=== PATIENT | male | born 1935 | race Caucasian/White ===

== ENCOUNTER → 2017-08-29 | Outpatient (CLI) | payer MEDICARE, OTHER ==
[2015-10-19 13:21] VITALS: BMI 33.5
[~2017-08-29] MED LIST: ACET-2031 PO; ACET500T68 PO; ALL100 PO; ALLO-118 PO; BEN20 PO; BENA10TA4 PO; BENA20TA3 PO; BENA20TA62 PO; CEP500 PO; CEPH500T7 PO; CLOT15CR62 TP; DIGO125T25 PO; ENOX40DI8 SQ; FISH OIL1 CAP PO; FUR20 PO; FURO20TA19 PO; HYDR-4309 PO; LABE100T28 PO; LOR7.5/325 PO; LOVAZA1PT PO; METO2.5T15 PO; METO5TAB79 PO; OMEGA; OXYC-865 PO; OXYGENHOME INH; PER PO; PNEU0.5D3 IM; SPIR25TA78 PO; TAM4 PO; TAMS0.4C25 PO; TAMS0.4C76 PO; WAR5 PO; WARF-1 PO; WARF10TA29 PO; WARF5TAB23 PO; ZOLP-350 PO; ZOLP-358 PO; [UNRECOGNIZED DRUG - CODE] PO; [UNRECOGNIZED DRUG - CODE] PO
== END ==
LOC: LAB 07:51
PROVIDERS: ATTEND Internal Medicine
DX: R73.01 Impaired fasting glucose (principal); E78.2 Mixed hyperlipidemia; I10 Essential (primary) hypertension; I50.22 Chronic systolic (congestive) heart failure
CPT/HCPCS: 36415; 82040; 82247; 82310; 82374; 82435; 82465; 82565; 82947; 83036; 83718; 83880; 84075; 84132; 84155; 84295; 84450; 84460; 84478; 84520

== ENCOUNTER 2017-11-03 11:37 | Emergency (ER) | payer MEDICARE, OTHER ==
[2015-10-19 13:21] VITALS: Wt 107.7 kg
[~2017-11-03 11:37] MED LIST changes: -BENA10TA4 PO; +BENA10TA55 PO; +HYDR15OI21 TP; +LABE100T2 PO; -SPIR25TA78 PO; +SPIR25TA80 PO; +TRIA15CR40 TP
--- NOTE | 2017-11-03 11:52 | ER Report ---
History and Physical Time Seen By MD: 11:52 Hx. of Stated Complaint: Patient with "funny breathing" this am and nausea. Didn't feel well. Vomitted all over self in parking lot on arrival to ER HPI/ROS 82-year-old male with multiple chronic medical problems to include atrial fibrillation and a possible remote history of PE. He presents to the emergency department with chest pain, nausea vomiting, and diaphoresis. He he says that he only has chest pain when taking a deep breath, and describes the pain location as just above his sternum and distal to his thyroid. He states it feels almost if he has a "cold," but was worried that it was cardiac in nature due to the location of the pain. He has no dysphasia. No shortness of breath. He was able to take his medications as scheduled this morning. No fever chills. He states that he often has diaphoresis. No trauma. The pain is localized to the area described and does not radiate. Remainder of the 14 system rev: Yes Allergies: Coded Allergies: Penicillins (Verified Allergy, Severe, HIVES, 11/03/17) Sulfa (Sulfonamide Antibiotics) (Verified Allergy, Intermediate, rash, 11/03) erythromycin base (Verified Allergy, Intermediate, 11/03/17) Home Meds Active Scripts Zolpidem Tartrate (ZOLPIDEM TARTRATE) 10 Mg Tablet, 0.5-1 TAB PO HS Y for SLEEP , #30 TAB 0 Refills Prov:LIGIA MOLINA MD 10/20/17 Labetalol Hcl (LABETALOL HCL) 100 Mg Tablet, 1 TAB PO BID, #180 TAB 3 Refills Prov:LIGIA MOLINA MD 10/07/17 Benazepril Hcl (LOTENSIN) 20 Mg Tablet, 1 TAB PO BID, #180 TAB 3 Refills Hold dose if systolic blood pressure (SBP) is less than 140. Prov:LIGIA MOLINA MD 08/05/17 Metolazone (METOLAZONE) 5 Mg Tablet, 1 TAB PO QDAY, #30 TAB 11 Refills Prov:LIGIA MOLINA MD 04/30/17 Allopurinol (ZYLOPRIM) 100 Mg Tablet, 1 TAB PO QDAY, #90 TAB 3 Refills Prov:LIGIA MOLINA MD 12/12/17 Reported Medications [place]-3 Fatty Acids/Fish Oil (OMEGA 3 1,000 MG SOFTGEL) 1 Each Capsule, 2 EACH PO QDAY, CAPSULE 11/03/17 Furosemide (FUROSEMIDE) 20 Mg Tablet, 1 TAB PO BID, TAB 11/03/17 Tamsulosin Hcl (FLOMAX) 0.4 Mg Cap.er.24h, 0.4 MG PO DAILY, CAP 06/18/16 Warfarin Sodium (WARFARIN SODIUM) 5 Mg Tablet, 5 MG PO QDAY, #45 TAB 11/02/15 Discontinued Scripts Triamcinolone Acetonide 0.1% Cr 15 Gm Tube (TRIAMCINOLONE ACETONIDE 0.1% CREAM) 15 Gm Cream..g., 1 BELLO TP BID for 30 Days, #1 TUBE 0 Refills Prov:ARACELI CACERES 10/30/17 Furosemide (LASIX) 20 Mg Tablet, 3 TAB PO DAILY, #90 TAB 3 Refills Take 2 tablets by mouth q am, and one tab at q pm. Hold dose if systolic blood pressure (SBP) is less than 120. Prov:LIGIA MOLINA MD 06/24/17 Reviewed Nurses Notes: Yes Old Medical Records Reviewed: Yes Hx Smoking: No Smoking Status: Never Smoker Exposure to Second Hand Smoke?: No Hx Substance Use Disorder: No Hx Alcohol Use: No Constitutional Vital Sign - Last 24 Hours 11/03/17 11/03/17 11/03/17 11/03/17 11:42 11:43 11:44 11:49 Pulse 138 Resp 34 B/P (MAP) 145/100 145/100 (115) 128/93 (105) Pulse Ox 85 O2 Delivery Room Air O2 Flow Rate 2.0 11/03/17 11/03/17 11/03/17 11/03/17 11:52 12:00 12:07 12:11 Pulse 125 128 Resp 22 B/P (MAP) 153/103 (120) 131/83 (99) Pulse Ox 91 89 11/03/17 11/03/17 11/03/17 11/03/17 12:14 12:19 12:24 12:29 Pulse 99 90 B/P (MAP) 124/105 (111) Pulse Ox 91 91 91 11/03/17 11/03/17 11/03/17 11/03/17 12:30 12:34 12:39 12:44 Pulse 99 82 96 B/P (MAP) 120/78 (92) Pulse Ox 92 93 92 11/03/17 11/03/17 11/03/17 11/03/17 12:49 12:54 13:00 13:09 Pulse 92 106 109 B/P (MAP) 118/88 (98) Pulse Ox 92 91 94 11/03/17 11/03/17 11/03/17 11/03/17 13:24 13:30 13:39 13:55 Pulse 96 102 B/P (MAP) 129/72 (91) 116/74 (88) Pulse Ox 93 92 11/03/17 11/03/17 11/03/17 11/03/17 14:00 14:05 14:20 14:30 Pulse 85 100 B/P (MAP) 108/66 (80) 112/76 (88) Pulse Ox 94 93 11/03/17 11/03/17 11/03/17 11/03/17 14:35 14:50 15:00 15:05 Pulse 82 118 94 B/P (MAP) 112/77 (89) Pulse Ox 95 91 93 11/03/17 11/03/17 11/03/17 11/03/17 15:10 15:15 15:20 15:25 Pulse 91 84 95 90 Pulse Ox 93 94 97 96 11/03/17 11/03/17 11/03/17 11/03/17 15:30 15:40 15:45 15:50 Pulse 87 97 88 88 B/P (MAP) 105/61 (76) Pulse Ox 97 94 95 95 Intake and Output 11/03/17 11/03/17 11/04/17 14:59 22:59 06:59 Intake Total 1000 ml Balance 1000 ml Physical Exam General Appearance: The patient is alert, has no immediate need for airway protection and no current signs of toxicity. Eyes: Pupils equal and round no injection. Respiratory: Chest is non tender, lungs are clear to auscultation. Cardiac: irregular rhytm and tachycardic Gastrointestinal: Abdomen is soft and non tender, no masses, bowel sounds normal. Neck: Neck is supple and non tender. Extremities have full range of motion and are non tender. Skin: Chronic venous stasis skin changes to bilateral lower extremities DIFFERENTIAL DIAGNOSIS: After history and physical exam differential diagnosis was considered for chest pain including but not limited to myocardial ischemia, pericarditis pulmonary embolus, chest wall pain, pleural inflammation and pulmonary infectious causes. Medical Decision Making Data Points Result Diagram: 11/03/17 1148 11/03/17 1148 Laboratory Hematology Test 11/03/17 11:48 11/03/17 14:49 Red Blood Count 5.25 M/uL (4.00-5.60) Mean Corpuscular Volume 88.2 fL (80.0-96.0) Mean Corpuscular Hemoglobin 29.2 pg (26.0-33.0) Mean Corpuscular Hemoglobin Concent 33.1 g/dL (32.0-36.0) Red Cell Distribution Width 15.9 % (11.5-14.5) Mean Platelet Volume 7.9 fL (7.2-11.1) Neutrophils (%) (Auto) 80.3 % (39.4-72.5) Lymphocytes (%) (Auto) 10.7 % (17.6-49.6) Monocytes (%) (Auto) 8.0 % (4.1-12.4) Eosinophils (%) (Auto) 0.6 % (0.4-6.7) Basophils (%) (Auto) 0.4 % (0.3-1.4) Nucleated RBC Relative Count (auto) 0.1 /100WBC Neutrophils # (Auto) 10.5 K/uL (2.0-7.4) Lymphocytes # (Auto) 1.4 K/uL (1.3-3.6) Monocytes # (Auto) 1.0 K/uL (0.3-1.0) Eosinophils # (Auto) 0.1 K/uL (0.0-0.5) Basophils # (Auto) 0.1 K/uL (0.0-0.1) Nucleated RBC Absolute Count (auto) 0.01 K/uL Prothrombin Time 20.5 seconds (12.0-14.4) Prothromb Time International Ratio 1.73 Activated Partial Thromboplast Time 34 seconds (23-35) D-Dimer Quantitative (PE/DVT) 0.60 ug/ml (0-0.50) Sodium Level 140 mmol/L (137-145) Potassium Level 3.7 mmol/L (3.5-5.0) Chloride Level 100 mmol/L (98-107) Carbon Dioxide Level 28 mmol/L (22-30) Blood Urea Nitrogen 21 mg/dl (9-21) Creatinine 1.10 mg/dl (0.66-1.25) Glomerular Filtration Rate Calc > 60.0 Random Glucose 125 mg/dl (75-110) Calcium Level 9.1 mg/dl (8.4-10.2) Total Bilirubin 0.9 mg/dl (0.2-1.3) Aspartate Amino Transf (AST/SGOT) 21 U/L (0-35) Alanine Aminotransferase (ALT/SGPT) 22 U/L (0-56) Alkaline Phosphatase 86 U/L (0-126) Total Protein 7.7 g/dl (6.3-8.2) Albumin 4.5 g/dl (3.5-5.0) Lipase 90 U/L (23-300) Troponin I < 0.012 ng/ml Chemistry Test 11/03/17 11:48 11/03/17 14:49 White Blood Count 13.1 k/uL (4.5-11.0) Red Blood Count 5.25 M/uL (4.00-5.60) Hemoglobin 15.3 g/dL (14.0-18.0) Hematocrit 46.3 % (42.0-52.0) Mean Corpuscular Volume 88.2 fL (80.0-96.0) Mean Corpuscular Hemoglobin 29.2 pg (26.0-33.0) Mean Corpuscular Hemoglobin Concent 33.1 g/dL (32.0-36.0) Red Cell Distribution Width 15.9 % (11.5-14.5) Platelet Count 177 K/uL (150-450) Mean Platelet Volume 7.9 fL (7.2-11.1) Neutrophils (%) (Auto) 80.3 % (39.4-72.5) Lymphocytes (%) (Auto) 10.7 % (17.6-49.6) Monocytes (%) (Auto) 8.0 % (4.1-12.4) Eosinophils (%) (Auto) 0.6 % (0.4-6.7) Basophils (%) (Auto) 0.4 % (0.3-1.4) Nucleated RBC Relative Count (auto) 0.1 /100WBC Neutrophils # (Auto) 10.5 K/uL (2.0-7.4) Lymphocytes # (Auto) 1.4 K/uL (1.3-3.6) Monocytes # (Auto) 1.0 K/uL (0.3-1.0) Eosinophils # (Auto) 0.1 K/uL (0.0-0.5) Basophils # (Auto) 0.1 K/uL (0.0-0.1) Nucleated RBC Absolute Count (auto) 0.01 K/uL Prothrombin Time 20.5 seconds (12.0-14.4) Prothromb Time International Ratio 1.73 Activated Partial Thromboplast Time 34 seconds (23-35) D-Dimer Quantitative (PE/DVT) 0.60 ug/ml (0-0.50) Glomerular Filtration Rate Calc > 60.0 Calcium Level 9.1 mg/dl (8.4-10.2) Total Bilirubin 0.9 mg/dl (0.2-1.3) Aspartate Amino Transf (AST/SGOT) 21 U/L (0-35) Alanine Aminotransferase (ALT/SGPT) 22 U/L (0-56) Alkaline Phosphatase 86 U/L (0-126) Total Protein 7.7 g/dl (6.3-8.2) Albumin 4.5 g/dl (3.5-5.0) Lipase 90 U/L (23-300) Troponin I < 0.012 ng/ml Coagulation Test 11/03/17 11:48 Prothrombin Time 20.5 seconds Prothromb Time International Ratio 1.73 Activated Partial Thromboplast Time 34 seconds D-Dimer Quantitative (PE/DVT) 0.60 ug/ml EKG/Imaging EKG Interpretation 12 lead EKG: Rhythm: afib with RVR [place]: left QRS: wide ST segments: Nonspecific T wave flattening ED Course/Re-evaluation ED Course This is an extremely pleasant 82-year-old male who presents to the emergency department with upper sternal chest pain with inspiration, nausea and vomiting, and diaphoresis. He is noted to be in A. fib with RVR. He was started on IV fluids and given IV diltiazem. Lab data is relatively unremarkable including a troponin. His EKG is at baseline. He has 2 normal troponins. No PE on a CTA of the chest, and no evidence of a pneumonia. He is now rate controlled and feeling improved after rate control and IV fluids. I do not think this is cardiac in nature nor do I think it is a PE. He states that he feels as if he just has a viral URI possibly. He has a follow-up appointment already scheduled tomorrow with his primary care physician. Decision to Disposition Date: Nov 03, 2017 Decision to Disposition Time: 16:12 Depart Departure Latest Vital Signs Vital Signs Date Time Temp Pulse Resp B/P (MAP) Pulse Ox O2 Delivery O2 Flow Rate FiO2 11/03/17 15:50 88 95 11/03/17 15:30 105/61 (76) 11/03/17 12:07 22 11/03/17 11:49 2.0 11/03/17 11:42 Room Air Impression: Primary Impression: Pleuritic chest pain Condition: Improved Disposition: HOME OR SELF-CARE Referrals: LIGIA MOLINA MD (PCP) Patient Instructions: Pleurisy (ED) RADHA LO MD Nov 03, 2017 11:52
[2017-11-03] MEDS ORDERED: OMEG-96 PO (11:56)
[2017-11-03] MEDS ORDERED: FURO-45 PO (11:56)
[2017-11-03] MEDS ORDERED: ONDANSETRON 4 MG/2 ML VIAL ONE (12:02)
[2017-11-03] MEDS ORDERED: DILTIAZEM 5 MG/ML 5ML IVPUSH IVP ONE (12:10)
[2017-11-03] MEDS ORDERED: NS(*) 0.9% 1000 ML BAG 1,000 ML IV ONE (12:10)
[2017-11-03 12:15] LABS: PLATELET COUNT, AUTOMATED 177 K/uL (150-450)
--- NOTE | 2017-11-03 13:04 | EKG ---
FACILITY: [facility] PATIENT NAME: FABIAN RINALDI : [id number] MR: [id number] V: [id number] EXAM DATE: ORDERING PHYSICIAN: RADHA LO TECHNOLOGIST: SCOTT Test Reason : Blood Pressure : / mmHG Vent. Rate : 134 BPM Atrial Rate : 127 BPM P-R Int : 000 ms QRS Dur : 116 ms QT Int : 322 ms P-R-T Axes : 000 -39 083 degrees QTc Int : 480 ms Atrial fibrillation with rapid ventricular response with premature ventricular or aberrantly conducte d complexes Left axis deviation Abnormal ECG When compared with ECG of 18-JUN-2016 16:24, No significant change was found Confirmed by MICHELE HORN ([id number]) on 11/04/2017 6:25:55 AM Referred By: TERESITA Confirmed By:MICHELE HORN
[2017-11-03 13:12] LABS: INR 1.73
--- NOTE | 2017-11-03 13:15 | RADIOLOGY IMAGING REPORT ---
[place] [facility] [place] Naomi Swain : 1935 MR: [id number] V: [id number] EXAM DATE: ORDERING PHYSICIAN: RADHA LO TECHNOLOGIST: [place] [facility] [place]: Naomi Swain : 1935 Visit/Account:[id number] Date of Sevice: 11/03/2017 CHEST SINGLE AP Indication: Shortness breath, chest pain and diaphoresis.. Comparison: 06/18/2016. Findings: Cardiac silhouette remains enlarged but unchanged. Mediastinal silhouette and pulmonary vessels withi n normal limits for the technique and rotation. There is no focal infiltrate or lobar consolidation. No pneumothorax or pleural effusion. No discrete nodule. Chronic interstitial changes. Mild scarring is again seen in the lateral right lo wer lobe. Upper abdomen is unremarkable. No acute bony abnormality. IMPRESSION: 1. Stable enlarged cardiac silhouette without discrete edema or focal infiltrate. Report Dictated By: Sergei Grande at 11/03/2017 1:08 PM Report E-Signed By: Sergei Grande at 11/03/2017 1:11 PM WSN:[id number]
[2017-11-03] MEDS ORDERED: NS 0.9% 25 ML BAG 50 ML ONE (13:47)
[2017-11-03] MEDS ORDERED: IOPAMIDOL 76% 100 ML INFUS BTL 100 ML ONE (13:47)
--- NOTE | 2017-11-03 14:26 | RADIOLOGY IMAGING REPORT ---
FACILITY: [facility] - [place] PATIENT NAME: Naomi Swain : 1935 MR: [id number] V: [id number] EXAM DATE: ORDERING PHYSICIAN: RADHA LO TECHNOLOGIST: Location: [facility] - [place] Patient: Naomi Swain : 1935 Visit/Account:[id number] Date of Sevice: 11/03/2017 CT angiogram chest with contrast Indication: Shortness breath and diaphoresis. History of pulmonary embolism. Comparison: None available. Technique: Axial CT images are obtained through the chest after administration of 75 mL Isovue 370 IV contrast. Reformatted coronal and sagittal images were reviewed as well as coronal MIP images. One of the following dose optimization techniques was utilized in the performance of this exam: auto mated exposure control; adjustment of the mA and/or kV according to the patient's size; or use of an iterative reconstruction technique. Specific details can be referenced in the facility's radiology C T exam operational policy. FINDINGS: No evidence of filling defect within the pulmonary vasculature to suggest pulmonary embolus. The heart is diffusely enlarged without pericardial effusion. The right ventricle measures 5.5 cm and the left ventricle measures 4.2 cm. The aorta does show mild atherosclerotic calcific changes withou t aneurysm. Aorta is not well opacified to assess for dissection. The mediastinum and hilar regions s how no enlarged lymph nodes or abnormal density. Lungs show mild dependent atelectasis and scarring. No focal consolidation, pleural effusion or pneum othorax. No discrete nodule. No focal interstitial opacities. Airways are clear. The bony structures show no acute fractures or aggressive bony lesions. Mild compression T11 vertebra l body appears to be stable compared the lateral chest x-ray on 09/22/2015. There are couple scattered bone islands in the thoracic spine. Degenerative changes seen in thoracic spine. Chest wall shows no enlarged axillary lymph nodes or masses. The anterior aspect of the liver does show 2 cm cyst. Upper abdomen is otherwise unremarkable. IMPRESSION: 1. No evidence of pulmonary embolus. 2. Cardiomegaly. No indication of edema or infiltrate. 3. Other chronic findings as above. Report Dictated By: Sergei Grande at 11/03/2017 2:08 PM Report E-Signed By: Sergei Grande at 11/03/2017 2:22 PM WSN:[id number]
[2017-11-03] MEDS ORDERED: GI COCKTAIL 60 ML BTL PO PRN (16:15)
[2017-11-03 16:25] VITALS: BP 101/73
[2017-11-03] MEDS ORDERED: DEXAMETHASONE 4 MG TAB PO ONE (16:25)
[2017-11-03] MEDS ORDERED: MAG HYD/AL HYD/SIMETH 30ML UDC PO ONE (16:30)
[2017-11-03] MEDS ORDERED: LIDOCAINE 2% VISC SLN 15ML UDC PO ONE (16:30)
[2017-11-04] MEDS ORDERED: FURO-45 PO (14:20)
[2017-11-04] MEDS ORDERED: POTA-23 PO (14:25)
[2017-11-04] MEDS ORDERED: FURO-47 PO (14:25)
== END 2017-11-03 16:25 | disposition home or self-care (01) ==
LOC: ER 11:37
DX: R07.89 Other chest pain (principal)
CPT/HCPCS: 36415; 71045; 71275; 83690; 84484; 85025; 85379; 85610; 85730; 93005; 96361; 96374; 99284; A9270; J2405; J3490; J7030; J8540; Q9967; 82040; 82247; 82310; 82374; 82435; 82565; 82947; 84075; 84132; 84155; 84295; 84450; 84460; 84520

== ENCOUNTER → 2017-11-13 | Outpatient (CLI) | payer MEDICARE, OTHER ==
[2015-10-19 13:21] VITALS: BMI 33.5
[~2017-11-13] MED LIST changes: +FURO-45 PO; +FURO-47 PO; +OMEG-96 PO; +POTA-23 PO
== END ==
LOC: LAB 13:41
PROVIDERS: ATTEND Internal Medicine
DX: I10 Essential (primary) hypertension (principal); R60.0 Localized edema
CPT/HCPCS: 36415; 82310; 82374; 82435; 82565; 82947; 84132; 84295; 84520

== ENCOUNTER → 2017-12-17 | Outpatient (CLI) | payer MEDICARE, OTHER ==
[2015-10-19 13:21] VITALS: BMI 33.5
--- NOTE | 2017-12-17 16:07 | RADIOLOGY IMAGING REPORT ---
FACILITY: [facility] - [place] PATIENT NAME: Naomi Swain : 1935 MR: [id number] V: [id number] EXAM DATE: ORDERING PHYSICIAN: PATRICE VICTOR TECHNOLOGIST: Location: [facility] Patient: Naomi Swain : 1935 Visit/Account:[id number] Date of Sevice: 12/17/2017 HIP LEFT HISTORY: Left hip pain Additional history: None COMPARISON: Comparison hip radiographs 07/02/2015 FINDINGS: Remote right hip fracture orthopedically repair with intramedullary nail and interlocking pin in plac e unchanged from 2016. Apparent mild foreshortening the left femoral neck is unchanged in appearance from the 2016 exam and I do not see evidence of an acute left hip fracture. Pelvic girdle is intact. No appreciable osteoarthritic change in the hip joints. Again seen is a 4 cm diameter spiculated calcified mass projecting over the urinary bladder which toni ost certainly represents a large bladder stone. IMPRESSION: No definite evidence of acute pathology. Specifically I do not see evidence of a left hip fracture. I would caution that radiographs are insensitive for nondisplaced hip fractures at this is a continu ed clinical concern noncontrasted MRI should be considered which is the most sensitive modality for d eveloping fractures. 4 cm spiculated bladder mass. Recommend urology consultation Report Dictated By: Shahid Hill MD at 12/17/2017 3:55 PM Report E-Signed By: Shahid Hill MD at 12/17/2017 4:03 PM WSN:[id number]
== END ==
LOC: RAD 14:54
PROVIDERS: ATTEND Nurse Practitioner Primary Care
DX: N32.9 Bladder disorder, unspecified (principal); Z96.7 Presence of other bone and tendon implants

== ENCOUNTER → 2017-12-22 | Outpatient (CLI) | payer MEDICARE, OTHER ==
[2015-10-19 13:21] VITALS: BMI 33.5
--- NOTE | 2017-12-22 15:18 | RADIOLOGY IMAGING REPORT ---
FACILITY: [facility] PATIENT NAME: Naomi Swain : 1935 MR: [id number] V: [id number] EXAM DATE: ORDERING PHYSICIAN: PATRICE VICTOR TECHNOLOGIST: Location: [facility] Patient: Naomi wSain : 1935 Visit/Account:[id number] Date of Sevice: 12/22/2017 HIP LEFT W/O CONTRAST HISTORY: L hip pain COMPARISON: X-ray 12/17/2017 TECHNIQUE: Multiplanar/multisequence was obtained through the left hip without contrast. CONTRAST: None FINDINGS: Left hip: Joint space: Moderate-severe joint space narrowing superiorly-laterally with moderate thinning of the articular cartilage. Moderate subchondral cystic change within the superior-lateral acetabulum. Bone marrow: No bone marrow edema pattern to indicate occult fracture. Pubic rami are intact. Labrum: Extensive degenerative labral tearing anteriorly and especially superiorly with probable tiny paralabral cysts at the superior-posterior corner. Effusion: None Other findings: None significant Limited images of the right hip: Joint space: Mild-moderate narrowing. Bone marrow: ORIF of the right femoral neck Effusion: None Other findings: None significant Bony pelvis: Normal Pubic symphysis and SI joints: Normal Myotendinous structures: Mild edema subjacent to the bilateral iliopsoas without discrete fluid colle ction. Soft tissues: Normal Intrapelvic and lower abdominal findings: Stellate 35mm bladder calculus Visualized spine: Normal Other findings: None significant IMPRESSION: 1. Left hip shows moderate superior-lateral joint space narrowing with moderate thinning of the artic ular cartilage and subchondral cysts within the acetabulum. There is extensive degenerative labral te aring anteriorly and especially superiorly with tiny posterior paralabral cysts. 2. Noted is a 35 mm stellate calculus within the urinary bladder. Report Dictated By: Chito Ledezma MD at 12/22/2017 2:43 PM Report E-Signed By: Chito Ledezma MD at 12/22/2017 3:14 PM WSN:[id number]
== END ==
LOC: MRI 02:56
PROVIDERS: ATTEND Nurse Practitioner Primary Care
DX: N21.0 Calculus in bladder (principal); M16.12 Unilateral primary osteoarthritis, left hip

== ENCOUNTER → 2018-02-27 | Outpatient (CLI) | payer MEDICARE, OTHER ==
[2015-10-19 13:21] VITALS: BMI 33.5
[~2018-02-27] MED LIST changes: +CLOB15CR22 TP; +FLU180SY11 IM; -HYDR-4309 PO; +HYDR-653 PO; +LEVO-85 PO
[2018-02-27 08:42] LABS: LDL CHOLESTEROL 49 mg/dl
== END ==
LOC: LAB 08:08
PROVIDERS: ATTEND Internal Medicine
DX: R73.01 Impaired fasting glucose (principal); E78.2 Mixed hyperlipidemia; I10 Essential (primary) hypertension
CPT/HCPCS: 36415; 82040; 82247; 82310; 82374; 82435; 82465; 82565; 82947; 83036; 83718; 84075; 84132; 84155; 84295; 84450; 84460; 84478; 84520

== ENCOUNTER → 2018-03-11 | Outpatient (CLI) | payer MEDICARE, OTHER ==
[2015-10-19 13:21] VITALS: BMI 33.5
[~2018-03-11] MED LIST changes: +METF-450 PO
[2018-03-11 12:14] LABS: INR 1.86
== END ==
LOC: LAB 10:28
PROVIDERS: ATTEND Pharmacist Pharmacotherapy
DX: I48.2 Chronic atrial fibrillation (principal)
CPT/HCPCS: 36415; 85610

== ENCOUNTER → 2018-06-10 | Outpatient (CLI) | payer MEDICARE, OTHER ==
[2015-10-19 13:21] VITALS: BMI 33.5
== END ==
LOC: US 01:21
PROVIDERS: ATTEND Internal Medicine
DX: I51.7 Cardiomegaly (principal)
CPT/HCPCS: 93306

== ENCOUNTER → 2018-08-06 | Outpatient (CLI) | payer MEDICARE, OTHER ==
[2015-10-19 13:21] VITALS: BMI 33.5
[~2018-08-06] MED LIST changes: +GABA-547 PO
[2018-08-06 08:37] LABS: PLATELET COUNT, AUTOMATED 116 K/uL (150-450)
== END ==
LOC: LAB 08:09
PROVIDERS: ATTEND Nurse Practitioner Family
DX: R73.03 Prediabetes (principal); E78.2 Mixed hyperlipidemia; I10 Essential (primary) hypertension; I50.22 Chronic systolic (congestive) heart failure; I48.2 Chronic atrial fibrillation; M62.838 Other muscle spasm; M10.9 Gout, unspecified
CPT/HCPCS: 36415; 82040; 82247; 82310; 82374; 82435; 82465; 82565; 82947; 83036; 83718; 83735; 83880; 84075; 84132; 84155; 84295; 84443; 84450; 84460; 84478; 84520; 84550; 85025

== ENCOUNTER 2018-09-06 15:50 | Emergency (ER) | payer MEDICARE, OTHER ==
[2015-10-19 13:21] VITALS: Wt 105.7 kg
[~2018-09-06 15:50] MED LIST changes: +GABA-551 PO
--- NOTE | 2018-09-06 16:03 | ER Report ---
History and Physical Time Seen By MD: 16:03 HPI/ROS CHIEF COMPLAINT: Constipation HISTORY OF PRESENT ILLNESS: 83-year-old male patient present to emergency room with complaint of constipation. Patient states that he has not had a bowel movement for last few days. Patient states that he had a meal that was late in the day and believes that that has resulted in some constipation. He states he is not had a bowel movement since Friday. He states he is not had any nausea, vomiting. He denies having any diarrhea. Patient states he did have some toast yesterday, as he was afraid he more to cause more discomfort. Patient states that he is not having fevers or chills. He denies any difficulty with urination. REVIEW OF SYSTEMS: Respiratory: No cough, no dyspnea. Cardiovascular: No chest pain, no palpitations. Gastrointestinal: No vomiting, no abdominal pain. Musculoskeletal: No back pain. Allergies: Coded Allergies: Penicillins (Verified Allergy, Severe, HIVES, 09/06/18) Sulfa (Sulfonamide Antibiotics) (Verified Allergy, Intermediate, rash, 09/06/18) erythromycin base (Verified Allergy, Intermediate, 09/06/18) Home Meds Active Scripts Gabapentin (GABAPENTIN) 400 Mg Capsule, 1 CAP PO QHS, #30 CAPSULE 0 Refills Prov:NAHUM ROSALES APRN JAVASCRIPT ENGINEER-C 08/21/18 Benazepril Hcl (LOTENSIN) 20 Mg Tablet, 1 TAB PO BID, #180 TAB 0 Refills Hold dose if systolic blood pressure (SBP) is less than 140. Prov:LIGIA MOLINA MD 07/31/18 Allopurinol (ZYLOPRIM) 100 Mg Tablet, 1 TAB PO QDAY, #90 TAB Prov:LIGIA MOLINA MD 07/07/18 Warfarin Sodium (WARFARIN SODIUM) 5 Mg Tablet, 5 MG PO QDAY, #45 TAB 3 Refills Prov:LIGIA MOLINA MD 02/17/18 Clobetasol Propionate/Emoll (CLOBETASOL EMOLLIENT 0.05% CRM) 15 Gm Cream..g., 1 BELLO TP BID, #2 TUBE 3 Refills Prov:MICHELE RIOS MD 02/16/18 Triamcinolone Acetonide 0.1% Cr 15 Gm Tube (TRIAMCINOLONE ACETONIDE 0.1% CREAM) 15 Gm Cream..g., 1 BELLO TP BID for 30 Days, #1 TUBE 0 Refills Prov:NICKIARACELI C NPC 12/23/17 Furosemide (FUROSEMIDE) 40 Mg Tablet, 1 TAB PO BID, #180 TAB 3 Refills Prov:LIGIA MOLINA MD 11/04/17 Potassium Chloride (KLOR-CON 10) 10 Meq Tablet.er, 1 TAB PO QDAY, #90 TAB 3 Refills Prov:LIGIA MOLINA MD 11/04/17 Labetalol Hcl (LABETALOL HCL) 100 Mg Tablet, 1 TAB PO BID, #180 TAB 3 Refills Prov:LIGIA MOLINA MD 10/07/17 Reported Medications Tamsulosin Hcl (FLOMAX) 0.4 Mg Cap.er.24h, 0.4 MG PO DAILY, CAP 06/18/16 Discontinued Reported Medications [place]-3 Fatty Acids/Fish Oil (OMEGA 3 1,000 MG SOFTGEL) 1 Each Capsule, 2 EACH PO QDAY, CAPSULE 11/03/17 Discontinued Scripts Metolazone (METOLAZONE) 5 Mg Tablet, 1 TAB PO QAM, #30 TAB 2 Refills Prov:LATRICE HOLLIS PHARMD 07/29/18 Metformin Hcl (METFORMIN HCL) 500 Mg Tablet, 1 TAB PO QDAY, #90 TAB 3 Refills Prov:LIGIA MOLINA MD 03/04/18 Past Medical/Surgical History Patient has a past medical history of irregular heartbeat, hypertension, pulmonary embolism, prostate problems, arthritis, fractures, DVT. Patient has a surgical history of bilateral rotator cuff surgery, bilateral knee replacement, partial ileectomy, appendectomy. Patient has a family medical history of stroke. Reviewed Nurses Notes: Yes Hx Smoking: No Smoking Status: Never Smoker Exposure to Second Hand Smoke?: No Hx Substance Use Disorder: No Hx Alcohol Use: No Constitutional Vital Sign - Last 24 Hours 09/06/18 16:05 Temp 97.7 Pulse 94 Resp 20 B/P (MAP) 135/80 Pulse Ox 91 O2 Delivery Nasal Cannula Physical Exam General Appearance: The patient is alert, has no immediate need for airway protection and no current signs of toxicity. Respiratory: Chest is non tender, lungs are clear to auscultation. Cardiac: regular rate and rhythm Gastrointestinal: Abdomen is soft and non tender, no masses, bowel sounds are hypoactive. Musculoskeletal: Neck: Neck is supple and non tender. Extremities have full range of motion and are non tender. Skin: No rashes or lesions. DIFFERENTIAL DIAGNOSIS: After history and physical exam differential diagnosis was considered for constipation, bowel spasm, small bowel obstruction. Medical Decision Making EKG/Imaging Imaging Study: KUB SINGLE VIEW ABDOMEN Indication: Constipation Comparison study: June 19, 2016 Findings: Supine views of the abdomen demonstrates that the bowel gas pattern is unremarkable in appearance. There is a calcified fibroid present within the pelvis. This is unchanged in appearance. There is no evidence of small bowel obstruction. There is no evidence of pneumoperitoneum. The patient is status post open reduction internal fixation of the right femoral neck. IMPRESSION: No significant abnormality identified. Report Dictated By: Nigel Perez at 09/06/2018 4:50 PM Report E-Signed By: Nigel Perez at 09/06/2018 4:52 PM ED Course/Re-evaluation ED Course Patient was admitted to and examined, history and physical were obtained. Differential diagnoses were considered. On examination lungs are clear, heart is regular, abdomen is soft and nontender. A KUB x-ray was done of the abdomen. That showed no acute findings and no significant colonic stool. I discussed the findings with the patient. We will go ahead and discharge him home at this time. He is to increase fluid intake, get plenty of rest. I would like him to start taking MiraLAX daily to help with preventing constipation as well as to increase the bulk of his stool. Patient verbalized understanding and agreement with plan. Decision to Disposition Date: September 06, 2018 Decision to Disposition Time: 17:14 Depart Departure Latest Vital Signs Vital Signs Date Time Temp Pulse Resp B/P (MAP) Pulse Ox O2 Delivery O2 Flow Rate FiO2 09/06/18 16:05 97.7 94 20 135/80 91 Nasal Cannula Impression: Primary Impression: Abdominal pain Condition: Improved Disposition: HOME OR SELF-CARE Referrals: LIGIA MOLINA MD (PCP) Patient Instructions: Abdominal Pain (ED) Additional Instructions: Increase fluid intake. Get plenty of rest. Increase low impact aerobic activity. Follow up with your primary care provider in the next week. Return to the ER if condition worsens. Take Miralax daily to help with dowel motility and to prevent constipation. Problem Qualifiers Primary Impression: Abdominal pain Abdominal location: lower abdomen, unspecified Qualified Codes: R10.30 - Lower abdominal pain, unspecified GWENDOLYN FREEMAN September 06, 2018 16:03
[2018-09-06 16:05] VITALS: BP 135/80
--- NOTE | 2018-09-06 16:57 | RADIOLOGY IMAGING REPORT ---
FACILITY: [facility] [place] PATIENT NAME: Naomi Swain : 1935 MR: [id number] V: [id number] EXAM DATE: ORDERING PHYSICIAN: GWENDOLYN FREEMAN TECHNOLOGIST: [place] [facility] [place] : 1935 Visit/Account:[id number] Date of Sevice: 09/06/2018 Study: KUB SINGLE VIEW ABDOMEN Indication: Constipation Comparison study: June 19, 2016 Findings: Supine views of the abdomen demonstrates that the bowel gas pattern is unremarkable in appe arance. There is a calcified fibroid present within the pelvis. This is unchanged in appearance. There is no evidence of small bowel obstruction. There is no evidence of pneumoperitoneum. The patient is status post open reduction internal fixation of the right femoral neck. IMPRESSION: No significant abnormality identified. Report Dictated By: Nigel Perez at 09/06/2018 4:50 PM Report E-Signed By: Nigel Perez at 09/06/2018 4:52 PM WSN:[id number]
== END 2018-09-06 17:20 | disposition home or self-care (01) ==
LOC: ER 16:26
DX: R10.30 Lower abdominal pain, unspecified (principal)
CPT/HCPCS: 74018; 99283

== ENCOUNTER 2018-09-16 09:31 | Emergency (ER) | payer MEDICARE, OTHER ==
[2015-10-19 13:21] VITALS: BMI 33.5
[2018-09-16] MEDS ORDERED: NS(*) 0.9% 1000 ML BAG 1,000 ML IV ONE (10:09)
[2018-09-16] MEDS ORDERED: ONDANSETRON 4 MG/2 ML VIAL IVP ONE (10:10)
[2018-09-16 10:26] LABS: PLATELET COUNT, AUTOMATED 123 K/uL (150-450)
[2018-09-16 10:36] LABS: INR 2.24
[2018-09-16] MEDS ORDERED: IOPAMIDOL 76% 100 ML INFUS BTL 100 ML ONE ×2 (10:45→11:50)
--- NOTE | 2018-09-16 11:20 | ER Report ---
History and Physical Time Seen By MD: 09:30 Hx. of Stated Complaint: LOWER ABD PAIN OVER THE LAST DAY. NO BM YESTERDAY. HX OF ABD SURGERY AND SBO, THINKS HE IS OBSTRUCTED. NAUSEA AND VOMITTING STOMACH ACID HPI/ROS CHIEF COMPLAINT: Abdominal pain HISTORY OF PRESENT ILLNESS: Patient is an 83 mL comes emergency Department today with complaint of abdominal pain. Primarily localized in the left and right lower quadrant but generalizes well describes some paranoid type sensations 2. Patient has a surgical history of having 4 feet of his colon removed patient denies any diarrhea acid is last yesterday nausea without vomiting REVIEW OF SYSTEMS: Respiratory: No cough, no dyspnea. Cardiovascular: No chest pain, no palpitations. Gastrointestinal: Abdominal pain no vomiting Musculoskeletal: [No back pain.] Remainder of the 14 system rev: Yes Allergies: Coded Allergies: Penicillins (Verified Allergy, Severe, HIVES, 09/16/18) Sulfa (Sulfonamide Antibiotics) (Verified Allergy, Intermediate, rash, 09/16/18) erythromycin base (Verified Allergy, Intermediate, 09/16/18) Home Meds Active Scripts Pregabalin (LYRICA) 50 Mg Capsule, 1 CAP PO BID, #60 CAP 0 Refills Prov:NAHUM ROSALES APRN POWER GENERATING PLANT OPERATOR-C 09/14/18 Benazepril Hcl (LOTENSIN) 20 Mg Tablet, 1 TAB PO BID, #180 TAB 0 Refills Hold dose if systolic blood pressure (SBP) is less than 140. Prov:LIGIA MOLINA MD 07/31/18 Allopurinol (ZYLOPRIM) 100 Mg Tablet, 1 TAB PO QDAY, #90 TAB Prov:LIGIA MOLINA MD 07/07/18 Warfarin Sodium (WARFARIN SODIUM) 5 Mg Tablet, 5 MG PO QDAY, #45 TAB 3 Refills Prov:LIGIA MOLINA MD 02/17/18 Clobetasol Propionate/Emoll (CLOBETASOL EMOLLIENT 0.05% CRM) 15 Gm Cream..g., 1 BELLO TP BID, #2 TUBE 3 Refills Prov:MICHELE RIOS MD 02/16/18 Triamcinolone Acetonide 0.1% Cr 15 Gm Tube (TRIAMCINOLONE ACETONIDE 0.1% CREAM) 15 Gm Cream..g., 1 BELLO TP BID for 30 Days, #1 TUBE 0 Refills Prov:ARACELI CACERES Stevan NPC 12/23/17 Furosemide (FUROSEMIDE) 40 Mg Tablet, 1 TAB PO BID, #180 TAB 3 Refills Prov:LIGIA MOLINA MD 11/04/17 Potassium Chloride (KLOR-CON 10) 10 Meq Tablet.er, 1 TAB PO QDAY, #90 TAB 3 Refills Prov:LIGIA MOLINA MD 11/04/17 Labetalol Hcl (LABETALOL HCL) 100 Mg Tablet, 1 TAB PO BID, #180 TAB 3 Refills Prov:LIGIA MOLINA MD 10/07/17 Reported Medications Tamsulosin Hcl (FLOMAX) 0.4 Mg Cap.er.24h, 0.4 MG PO DAILY, CAP 06/18/16 Discontinued Scripts Gabapentin (GABAPENTIN) 400 Mg Capsule, 1 CAP PO QHS, #30 CAPSULE 0 Refills Prov:NAHUM ROSALES APRN POWER GENERATING PLANT OPERATOR-C 08/21/18 Reviewed Nurses Notes: Yes Old Medical Records Reviewed: Yes Hx Smoking: No Smoking Status: Never Smoker Exposure to Second Hand Smoke?: No Hx Substance Use Disorder: No Hx Alcohol Use: No Constitutional Vital Sign - Last 24 Hours 09/16/18 09/16/18 09/16/18 09/16/18 10:34 10:38 11:03 12:00 Temp 98.9 Pulse 103 108 111 Resp 20 B/P (MAP) 100/88 110/85 (93) Pulse Ox 90 93 88 O2 Delivery Room Air O2 Flow Rate 2.0 09/16/18 09/16/18 12:30 13:00 Pulse 110 105 Pulse Ox 89 91 Physical Exam General Appearance: [The patient is alert, has no immediate need for airway protection and no current signs of toxicity.] [ ] Eyes: Pupils equal and round no injection. Respiratory: Chest is non tender, lungs are clear to auscultation. Cardiac: regular rate and rhythm [ ] Gastrointestinal: Abdomen is slightly distended and mildly tympanic with diffuse tenderness with deep palpation in all 4 quadrants primarily in the lower quadrants bowel sounds otherwise unremarkable Musculoskeletal: Neck: Neck is supple and non tender. Extremities have full range of motion and are non tender. Skin: No rashes or lesions. [ ] DIFFERENTIAL DIAGNOSIS: After history and physical exam differential diagnosis was considered for small bowel obstruction perforation peritonitis colitis diverticulitis Medical Decision Making Data Points Result Diagram: 09/16/18 0951 09/16/18 0951 Laboratory Hematology Test 09/16/18 09:51 09/16/18 10:19 09/16/18 11:03 Red Blood Count 6.17 M/uL (4.00-5.60) Mean Corpuscular Volume 89.0 fL (80.0-96.0) Mean Corpuscular Hemoglobin 29.0 pg (26.0-33.0) Mean Corpuscular Hemoglobin Concent 32.6 g/dL (32.0-36.0) Red Cell Distribution Width 17.6 % (11.5-14.5) Mean Platelet Volume 8.5 fL (7.2-11.1) Neutrophils (%) (Auto) 86.9 % (39.4-72.5) Lymphocytes (%) (Auto) 6.4 % (17.6-49.6) Monocytes (%) (Auto) 5.8 % (4.1-12.4) Eosinophils (%) (Auto) 0.5 % (0.4-6.7) Basophils (%) (Auto) 0.4 % (0.3-1.4) Nucleated RBC Relative Count (auto) 0.0 /100WBC Neutrophils # (Auto) 8.9 K/uL (2.0-7.4) Lymphocytes # (Auto) 0.7 K/uL (1.3-3.6) Monocytes # (Auto) 0.6 K/uL (0.3-1.0) Eosinophils # (Auto) 0.0 K/uL (0.0-0.5) Basophils # (Auto) 0.0 K/uL (0.0-0.1) Nucleated RBC Absolute Count (auto) 0.00 K/uL Sodium Level 143 mmol/L (137-145) Potassium Level 4.5 mmol/L (3.5-5.0) Chloride Level 104 mmol/L (98-107) Carbon Dioxide Level 28 mmol/L (22-30) Blood Urea Nitrogen 41 mg/dl (9-21) Creatinine 1.60 mg/dl (0.66-1.25) Glomerular Filtration Rate Calc 41.4 Random Glucose 140 mg/dl (75-110) Lactate 1.5 mmol/L (0.7-2.1) Calcium Level 9.9 mg/dl (8.4-10.2) Total Bilirubin 1.5 mg/dl (0.2-1.3) Aspartate Amino Transf (AST/SGOT) 21 U/L (0-35) Alanine Aminotransferase (ALT/SGPT) 34 U/L (0-56) Alkaline Phosphatase 94 U/L (0-126) Total Protein 7.6 g/dl (6.3-8.2) Albumin 4.5 g/dl (3.5-5.0) Lipase 148 U/L (23-300) Prothrombin Time 25.1 seconds (12.0-14.4) Prothromb Time International Ratio 2.24 Activated Partial Thromboplast Time 42 seconds (23-35) Urine Color Yellow Urine Clarity Clear Urine pH 5.0 pH (4.8-9.5) Urine Specific [place] 1.021 Urine Protein Negative mg/dL (NEGATIVE) Urine Glucose (UA) Negative mg/dL (NEGATIVE) Urine Ketones Negative mg/dL (NEGATIVE) Urine Blood Negative (NEGATIVE) Urine Nitrite Negative (NEGATIVE) Urine Bilirubin Negative (NEGATIVE) Urine Urobilinogen Negative mg/dL (0.2-1.9) Urine Leukocyte Esterase Negative (NEGATIVE) Urine RBC 1 /HPF (0-2/HPF) Urine WBC 2 /HPF (0-5/HPF) Urine Squamous Epithelial Cells Moderate /LPF (</=FEW) Urine Bacteria Negative /HPF (NONE-FEW) Urine Hyaline Casts Many /LPF (NONE-FEW) Urine Mucus None /HPF (NONE-FEW) Chemistry Test 09/16/18 09:51 09/16/18 10:19 09/16/18 11:03 White Blood Count 10.3 k/uL (4.5-11.0) Red Blood Count 6.17 M/uL (4.00-5.60) Hemoglobin 17.9 g/dL (14.0-18.0) Hematocrit 54.9 % (42.0-52.0) Mean Corpuscular Volume 89.0 fL (80.0-96.0) Mean Corpuscular Hemoglobin 29.0 pg (26.0-33.0) Mean Corpuscular Hemoglobin Concent 32.6 g/dL (32.0-36.0) Red Cell Distribution Width 17.6 % (11.5-14.5) Platelet Count 123 K/uL (150-450) Mean Platelet Volume 8.5 fL (7.2-11.1) Neutrophils (%) (Auto) 86.9 % (39.4-72.5) Lymphocytes (%) (Auto) 6.4 % (17.6-49.6) Monocytes (%) (Auto) 5.8 % (4.1-12.4) Eosinophils (%) (Auto) 0.5 % (0.4-6.7) Basophils (%) (Auto) 0.4 % (0.3-1.4) Nucleated RBC Relative Count (auto) 0.0 /100WBC Neutrophils # (Auto) 8.9 K/uL (2.0-7.4) Lymphocytes # (Auto) 0.7 K/uL (1.3-3.6) Monocytes # (Auto) 0.6 K/uL (0.3-1.0) Eosinophils # (Auto) 0.0 K/uL (0.0-0.5) Basophils # (Auto) 0.0 K/uL (0.0-0.1) Nucleated RBC Absolute Count (auto) 0.00 K/uL Glomerular Filtration Rate Calc 41.4 Lactate 1.5 mmol/L (0.7-2.1) Calcium Level 9.9 mg/dl (8.4-10.2) Total Bilirubin 1.5 mg/dl (0.2-1.3) Aspartate Amino Transf (AST/SGOT) 21 U/L (0-35) Alanine Aminotransferase (ALT/SGPT) 34 U/L (0-56) Alkaline Phosphatase 94 U/L (0-126) Total Protein 7.6 g/dl (6.3-8.2) Albumin 4.5 g/dl (3.5-5.0) Lipase 148 U/L (23-300) Prothrombin Time 25.1 seconds (12.0-14.4) Prothromb Time International Ratio 2.24 Activated Partial Thromboplast Time 42 seconds (23-35) Urine Color Yellow Urine Clarity Clear Urine pH 5.0 pH (4.8-9.5) Urine Specific [place] 1.021 Urine Protein Negative mg/dL (NEGATIVE) Urine Glucose (UA) Negative mg/dL (NEGATIVE) Urine Ketones Negative mg/dL (NEGATIVE) Urine Blood Negative (NEGATIVE) Urine Nitrite Negative (NEGATIVE) Urine Bilirubin Negative (NEGATIVE) Urine Urobilinogen Negative mg/dL (0.2-1.9) Urine Leukocyte Esterase Negative (NEGATIVE) Urine RBC 1 /HPF (0-2/HPF) Urine WBC 2 /HPF (0-5/HPF) Urine Squamous Epithelial Cells Moderate /LPF (</=FEW) Urine Bacteria Negative /HPF (NONE-FEW) Urine Hyaline Casts Many /LPF (NONE-FEW) Urine Mucus None /HPF (NONE-FEW) Coagulation Test 09/16/18 10:19 Prothrombin Time 25.1 seconds Prothromb Time International Ratio 2.24 Activated Partial Thromboplast Time 42 seconds Urinalysis Test 09/16/18 11:03 Urine Color Yellow Urine Clarity Clear Urine pH 5.0 pH (4.8-9.5) Urine Specific [place] 1.021 Urine Protein Negative mg/dL (NEGATIVE) Urine Glucose (UA) Negative mg/dL (NEGATIVE) Urine Ketones Negative mg/dL (NEGATIVE) Urine Blood Negative (NEGATIVE) Urine Nitrite Negative (NEGATIVE) Urine Bilirubin Negative (NEGATIVE) Urine Urobilinogen Negative mg/dL (0.2-1.9) Urine Leukocyte Esterase Negative (NEGATIVE) Urine RBC 1 /HPF (0-2/HPF) Urine WBC 2 /HPF (0-5/HPF) Urine Squamous Epithelial Cells Moderate /LPF (</=FEW) Urine Bacteria Negative /HPF (NONE-FEW) Urine Hyaline Casts Many /LPF (NONE-FEW) Urine Mucus None /HPF (NONE-FEW) ED Course/Re-evaluation ED Course ED clinical course 83-year-old male comes in with abdominal pain CT scan does confirm small bowel obstruction with a transition point near the ileocecal valve in addition to that there was a thrombus noted in the arterial area in the right atrium this is follow-up with a angiogram which confirmed a large mural thrombus multiple additional thrombus is through the pedicle appendage concerning enough to were working to transfer him to an outside facility for surgical intervention small bowel obstruction and followed up by CT surgery evaluation for the present Castro thrombus patient is stable time of transfer Decision to Disposition Date: September 16, 2018 Decision to Disposition Time: 14:44 Depart Departure Latest Vital Signs Vital Signs Date Time Temp Pulse Resp B/P (MAP) Pulse Ox O2 Delivery O2 Flow Rate FiO2 09/16/18 13:00 105 91 5/22/19 11:03 110/85 (93) 09/16/18 10:38 2.0 09/16/18 10:34 98.9 20 Room Air Impression: Primary Impression: Small bowel obstruction Additional Impression: Atrial thrombus Condition: Improved Disposition: XFER TO ACUTE CARE HOSPITAL Referrals: NAHUM ROSALES APRN POWER GENERATING PLANT OPERATOR-C (PCP) Problem Qualifiers NAV BLUE MD September 16, 2018 11:20
--- NOTE | 2018-09-16 11:22 | RADIOLOGY IMAGING REPORT ---
FACILITY: [facility] PATIENT NAME: Naomi Swain : 1935 MR: [id number] V: [id number] EXAM DATE: ORDERING PHYSICIAN: NAV BLUE TECHNOLOGIST: Location: [facility] [place] Patient: Naomi Swain : 1935 Visit/Account:[id number] Date of Sevice: 09/16/2018 Exam type: CHEST PA LAT History: Abdomen pain, no chest complaints Comparison: November 03, 2017. Findings: The lungs are free of acute effusions, infiltrates or edema. Scarring in the lateral right lung base again seen. This chronic peribronchial thickening bilaterally. The cardiac silhouette is enlarged but unchanged. There is moderate ectasia the thoracic aorta. There are moderate spondylotic changes of the thoracic spine and old right-sided rib fractures IMPRESSION: 1. Cardiomegaly unchanged Chronic peribronchial thickening and right basilar scarring Report Dictated By: Bharati Swan MD at 09/16/2018 11:16 AM Report E-Signed By: Bharati Swan MD at 09/16/2018 11:17 AM WSN:[email or web address]
--- NOTE | 2018-09-16 11:44 | RADIOLOGY IMAGING REPORT ---
FACILITY: [facility] PATIENT NAME: Naomi Swain : 1935 MR: [id number] V: [id number] EXAM DATE: ORDERING PHYSICIAN: NAV BLUE TECHNOLOGIST: Location: [facility] - [place], [place] Patient: Naomi Swain : 1935 Visit/Account:[id number] Date of Sevice: 09/16/2018 CT ABDOMEN PELVIS W/ CON HISTORY: Abdominal pain TECHNIQUE: Axial images were obtained through the abdomen and pelvis with intravenous contrast . One of the following dose optimization techniques was utilized in the performance of this exam: automate d exposure control; adjustment of the mA and/or kv according to patient size; or use of iterative rec onstruction technique. Specific details can be referenced in the facility's radiology CT exam operati onal policy. CONTRAST: 75 mL of Isovue-370 COMPARISON: CT angiogram of the chest 11/03/2017 FINDINGS: Visualized lung bases: Roundish low-attenuation within the right atrium on the first image, incomple tely evaluated but concerning for thrombus. Mild bilateral pleural-parenchymal scarring. Hepatobiliary: Hepatic cysts measuring up to 1.5 cm. Spleen: Negative. Adrenals: Negative. Pancreas: Negative. Kidneys/ureters/bladder: 3 mm nonobstructing right renal calculus. 5.4 x 4.6 cm simple right renal cyst. No hydronephrosis. Stellate 34 x 34 x 37 mm urinary bladder calculus. Bowel/peritoneum/mesentery: Findings consistent with mechanical small bowel obstruction with point o f transition approximately 20 cm from the ileocecal valve with preceding fecalized small bowel measur ing up to 4.7 cm. Small amount of free fluid within the right lower quadrant. No free air. Vessels: Mild arterial calcifications. Lymph nodes: Negative. Pelvic genitourinary: Negative. Bones/body wall: ORIF of the right femoral neck. Scattered degenerative changes. Other findings: None significant IMPRESSION: 1. Findings consistent with mechanical small bowel obstruction approximately 20 cm from the ileoceca l valve. Small amount of adjacent free fluid. 2. Roundish low-attenuation within the right atrium on the first image concerning for thrombus. Rec ommend dedicated CT chest with contrast for further evaluation with timing of the contrast bolus disc ussed with the ct mri technologist. 3. 3 mm nonobstructing left renal calculus. 34 x 34 x 37 mm stellate urinary bladder calculus. Results were called to NAV BLUE at 09/16/2018 11:38 AM. Report Dictated By: Chito Ledezma MD at 09/16/2018 11:15 AM Report E-Signed By: Chito Ledezma MD at 09/16/2018 11:40 AM WSN:[id number]
--- NOTE | 2018-09-16 13:41 | RADIOLOGY IMAGING REPORT ---
FACILITY: [facility] PATIENT NAME: Naomi Swain : 1935 MR: [id number] V: [id number] EXAM DATE: ORDERING PHYSICIAN: NAV BLUE TECHNOLOGIST: Location: [facility] Patient: Naomi Swain : 1935 Visit/Account:[id number] Date of Sevice: 09/16/2018 CT CTA CHEST W & W/O CON HISTORY: Right atrial thrombus ADDITIONAL HISTORY: None. TECHNIQUE: CTA chest with intravenous contrast. Axial imaging acquired following administration of IV contrast timed for maximum opacification of the pulmonary arterial vasculature. Slab 3-D MIP karina nstructed images were also created for further evaluation and interpretation. Reconstruction of the [facility] data set includes multiplanar 2-D in the sagittal and coronal planes and 3-D reconstructed geneva nal slab MIP series. 3-D images were created by the technologist.Dose Lowering Technique One of the following dose optimization techniques was utilized in the performance of this exam: Autom ated exposure control; adjustment of the mA and/or kV according to the patient's size; or use of an i terative reconstruction technique. Specific details can be referenced in the facility's radiology C T exam operational policy. CONTRAST: 75 mL Isovue-370 COMPARISON: CT abdomen pelvis performed earlier today FINDINGS: Lungs/pleura: There is mild pleural parenchymal scarring in the lung bases. Heart/vessels: There is an ovoid 3.3 x 3.1 x 4.2 cm hypoattenuating process within the right atrium likely representing a thrombus. There are multiple additional smaller hypodensities within the dilat ed right atrial appendage. There is mosquera cardiomegaly and extensive calcifications within the coronar y arteries. Mediastinum/lymph nodes: Negative. Visualized upper abdomen: Please see today's CT of abdomen pelvis dictation Bones/soft tissues: Scoliosis and spondylotic changes of the thoracic spine. There is a mild compre ssion fracture of T11 Additional findings: None IMPRESSION: 3.3 x 3.1 x 4.2 cm hypoattenuating process within the right atrium likely representing a thrombus. T here are multiple additional smaller hypodensities within the dilated right atrial appendage consiste nt with additional thrombi. Echocardiogram recommended for further evaluation Mosquera cardiomegaly extensive calcifications within the coronary arteries Additional chronic findings as described Results were called to NAV BLUE at 09/16/2018 1:37 PM. Report Dictated By: Bharati Swan MD at 09/16/2018 1:17 PM Report E-Signed By: Bharati Swan MD at 09/16/2018 1:37 PM WSN:[email or web address]
[2018-09-16 15:55] VITALS: BP 12/87
[2018-09-16] MEDS ORDERED: HYDROMORPHONE HCL 1 MG/ML SYRINGE IVP ONE (15:55)
== END 2018-09-16 16:00 | disposition short-term general hospital (02) ==
LOC: ER 11:01
DX: K56.609 Unspecified intestinal obstruction, unspecified as to partial versus complete obstruction (principal); I51.3 Intracardiac thrombosis, not elsewhere classified
CPT/HCPCS: 71046; 71275; 74177; 81001; 83605; 83690; 85025; 85610; 85730; 96361; 96374; 96375; 99285; J1170; J2405; J7030; Q9967; 82040; 82247; 82310; 82374; 82435; 82565; 82947; 84075; 84132; 84155; 84295; 84450; 84460; 84520

== ENCOUNTER → 2018-09-16 | Outpatient (CLI) | payer MEDICARE, OTHER ==
[2015-10-19 13:21] VITALS: BMI 33.5
[~2018-09-16] MED LIST changes: +PREG50CA48 PO
== END ==
LOC: AMB 15:43
PROVIDERS: ATTEND Nurse Practitioner
DX: K56.609 Unspecified intestinal obstruction, unspecified as to partial versus complete obstruction (principal); I44.30 Unspecified atrioventricular block; R10.84 Generalized abdominal pain
CPT/HCPCS: A0425; A0426

== ENCOUNTER → 2018-10-12 | Outpatient (CLI) | payer MEDICARE, OTHER ==
[2015-10-19 13:21] VITALS: BMI 33.5
[2018-10-12 11:57] LABS: INR 3.31
== END ==
LOC: LAB 11:34
PROVIDERS: ATTEND Pharmacist Pharmacotherapy
DX: I48.2 Chronic atrial fibrillation (principal)
CPT/HCPCS: 85610

== ENCOUNTER 2018-10-18 19:30 | Emergency (ER) | payer MEDICARE, OTHER ==
[2015-10-19 13:21] VITALS: Wt 101.2 kg
--- NOTE | 2018-10-18 19:41 | ER Report ---
History and Physical Time Seen By MD: 19:38 Hx. of Stated Complaint: PT REPORTS LAST BM YESTERDAY. PT HAS NOT BEEN ABLE TO GO TODAY. HPI/ROS CHIEF COMPLAINT: Constipation HISTORY OF PRESENT ILLNESS: 83-year-old male presents ambulatory to the ER complaining of abdominal distention and constipation. His last movement was yesterday. Patient was seen a month ago and had a cardiac thrombus and was transferred to [facility]. He also had partial small bowel obstruction. Patient notes no nausea or vomiting. Patient notes no dysuria. She denies history of abdominal surgeries. Patient denies abdominal pain or fever or chills REVIEW OF SYSTEMS: Respiratory: No cough, no dyspnea. Cardiovascular: No chest pain, no palpitations. Gastrointestinal: No vomiting, no abdominal pain. Musculoskeletal: No back pain. Allergies: Coded Allergies: Penicillins (Verified Allergy, Severe, HIVES, 10/18/18) Sulfa (Sulfonamide Antibiotics) (Verified Allergy, Intermediate, rash, 10/18/18) erythromycin base (Verified Allergy, Intermediate, 10/18/18) Home Meds Active Scripts Allopurinol (ZYLOPRIM) 100 Mg Tablet, 1 TAB PO QDAY, #90 TAB 3 Refills Prov:NAHUM ROSALES APRNP-C 10/09/18 Labetalol Hcl (LABETALOL HCL) 100 Mg Tablet, 1 TAB PO BID, #180 TAB 1 Refill Prov:NAHUM ROSALES APRN SERGING MACHINE OPERATOR-C 10/08/18 Pregabalin (LYRICA) 50 Mg Capsule, 1 CAP PO BID, #60 CAP 0 Refills Prov:NAHUM ROSALES APRN SERGING MACHINE OPERATOR-C 09/14/18 Benazepril Hcl (LOTENSIN) 20 Mg Tablet, 1 TAB PO BID, #180 TAB 0 Refills Hold dose if systolic blood pressure (SBP) is less than 140. Prov:LIGIA MOLINA MD 07/31/18 Warfarin Sodium (WARFARIN SODIUM) 5 Mg Tablet, 5 MG PO QDAY, #45 TAB 3 Refills Prov:LIGIA MOLINA MD 02/17/18 Clobetasol Propionate/Emoll (CLOBETASOL EMOLLIENT 0.05% CRM) 15 Gm Cream..g., 1 BELLO TP BID, #2 TUBE 3 Refills Prov:MICHELE RIOS MD 02/16/18 Triamcinolone Acetonide 0.1% Cr 15 Gm Tube (TRIAMCINOLONE ACETONIDE 0.1% CREAM) 15 Gm Cream..g., 1 BELLO TP BID for 30 Days, #1 TUBE 0 Refills Prov:ARACELI CACERES KATTY 12/23/17 Furosemide (FUROSEMIDE) 40 Mg Tablet, 1 TAB PO BID, #180 TAB 3 Refills Prov:LIGIA MOLINA MD 11/04/17 Potassium Chloride (KLOR-CON 10) 10 Meq Tablet.er, 1 TAB PO QDAY, #90 TAB 3 Refills Prov:LIGIA MOLINA MD 11/04/17 Reported Medications Tamsulosin Hcl (FLOMAX) 0.4 Mg Cap.er.24h, 0.4 MG PO DAILY, CAP 06/18/16 Past Medical/Surgical History Patient has a past medical history of irregular heartbeat, hypertension, pulmonary embolism, prostate problems, arthritis, fractures, DVT. Patient has a surgical history of bilateral rotator cuff surgery, bilateral knee replacement, partial ileectomy, appendectomy. Patient has a family medical history of stroke. Reviewed Nurses Notes: Yes Old Medical Records Reviewed: Yes Hx Smoking: No Smoking Status: Never Smoker Exposure to Second Hand Smoke?: No Hx Substance Use Disorder: No Hx Alcohol Use: No Constitutional Vital Sign - Last 24 Hours 10/18/18 10/18/18 10/18/18 10/18/18 19:35 19:36 19:45 20:00 Temp 97.7 Pulse 110 97 106 Resp 18 B/P (MAP) 120/87 (98) 120/87 107/74 (85) Pulse Ox 86 92 93 O2 Delivery Room Air 10/18/18 10/18/18 20:15 20:30 Pulse 94 103 B/P (MAP) 125/106 (112) Pulse Ox 93 92 Physical Exam General Appearance: The patient is alert, has no immediate need for airway protection and no current signs of toxicity. Vital signs stable, afebrile, pulse ox normal Eyes: Pupils equal and round no injection. Respiratory: Chest is non tender, lungs are clear to auscultation. Cardiac: regular rate and rhythm Gastrointestinal: Abdomen is soft, mildly distended and non tender, no masses, bowel sounds normal. Musculoskeletal: Neck: Neck is supple and non tender. Extremities have full range of motion and are non tender. Skin: No rashes or lesions. DIFFERENTIAL DIAGNOSIS: After history and physical exam differential diagnosis was considered for abdominal pain including but not limited to appendicitis, cholecystitis, bowel obstruction, constipation, gastritis and urinary tract infection. Medical Decision Making EKG/Imaging Imaging X-ray: location was obtained. I viewed the images myself on the PACS system. My interpretation of the images is: Moderate fecal stasis noted throughout the colon, no evidence of obstruction. The radiologist interpretation had no clinically significant variation from this interpretation. ED Course/Re-evaluation ED Course Patient was admitted to an examination room. H&P was done. The differential diagnoses was considered. Patient with distention of his abdomen. He's not had a bowel movement in 24 hours. He still passing gas, so no evidence of obstruction at this point. Patient had the urge to Goll and retired to the bathroom. A Dulcolax suppository was inserted. Patient advised MiraLAX and magnesium citrate. Patient advised to follow-up with primary care if unimproved in 3-5 days. Decision to Disposition Date: Oct 18, 2018 Decision to Disposition Time: 20:46 Depart Departure Latest Vital Signs Vital Signs Date Time Temp Pulse Resp B/P (MAP) Pulse Ox O2 Delivery O2 Flow Rate FiO2 10/18/18 20:30 103 125/106 (112) 92 10/18/18 19:36 97.7 18 Room Air Impression: Primary Impression: Constipation Additional Impression: Chronic anticoagulation Condition: Improved Disposition: HOME OR SELF-CARE Referrals: NAHUM ROSALES APRN SERGING MACHINE OPERATOR-C (PCP) Patient Instructions: Clear Liquid Diet (ED), Constipation (ED) Additional Instructions: Take MiraLAX 2-3 times a day for the next 2-3 days Follow-up clear liquid diet for 24-48 hours and to your bowels evacuate Take MiraLAX every day until you have loose stools or diarrhea, then decreased to every other day or every 3rd day Take one bottle of magnesium citrate laxative to stimulate her bowels to evacuate, human exit with 7-Up or apple juice. Follow-up with your primary care if unimproved in 3-5 days. Problem Qualifiers Primary Impression: Constipation Constipation type: unspecified constipation type Qualified Codes: K59.00 - Constipation, unspecified MILAGROS MONTERO DO Oct 18, 2018 19:40
[2018-10-18 20:30] VITALS: BP 125/106
[2018-10-18] MEDS ORDERED: BISACODYL 10 MG SUPP PR ONE (20:50)
--- NOTE | 2018-10-18 21:17 | RADIOLOGY IMAGING REPORT ---
FACILITY: [facility] PATIENT NAME: Naomi Swain : 1935 MR: [id number] V: [id number] EXAM DATE: ORDERING PHYSICIAN: MILAGROS MONTERO TECHNOLOGIST: Location: Patient: Naomi Swain : 1935 Visit/Account:[id number] Date of Sevice: 10/18/2018 KUB SINGLE VIEW ABDOMEN INDICATION: Constipation. COMPARISON: 09/06/2018. FINDINGS: Supine view the abdomen. Moderate stool seen throughout colon. The bowel gas pattern is nonobstructed and nondilated. There is again a stellate large calcification seen in the urinary racheal dder which is unchanged. No other suspicious calcifications or abnormal lucencies. Soft tissues are unremarkable. No acute bony abnormality. IMPRESSION: 1. Moderate stool seen throughout colon. Otherwise unremarkable. 2. 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 Report Dictated By: Sergei Grande at 10/18/2018 9:08 PM Report E-Signed By: Sergei Grande at 10/18/2018 9:10 PM WSN:[id number]
[2018-10-19] MEDS ORDERED: ASPI81TA94 PO (15:51)
[2018-10-19] MEDS ORDERED: LABE100T2 PO (15:51)
== END 2018-10-18 21:25 | disposition home or self-care (01) ==
LOC: ER 19:41
DX: K59.00 Constipation, unspecified (principal); Z79.01 Long term (current) use of anticoagulants
CPT/HCPCS: 74018; 99283; A9270

== ENCOUNTER → 2018-11-20 | Outpatient (CLI) | payer MEDICARE, OTHER ==
[2015-10-19 13:21] VITALS: BMI 33.5
[~2018-11-20] MED LIST changes: +ASPI81TA94 PO
[2018-11-20 14:42] LABS: PLATELET COUNT, AUTOMATED 175 K/uL (150-450)
== END ==
LOC: LAB 14:25
PROVIDERS: ATTEND Nurse Practitioner Family
DX: L53.9 Erythematous condition, unspecified (principal); R60.0 Localized edema
CPT/HCPCS: 36415; 82040; 82247; 82310; 82374; 82435; 82565; 82947; 84075; 84132; 84155; 84295; 84450; 84460; 84520; 85025; 86140

== ENCOUNTER → 2018-11-30 | Outpatient (CLI) | payer MEDICARE, OTHER ==
[2015-10-19 13:21] VITALS: BMI 33.5
[~2018-11-30] MED LIST changes: +FURO80TA70 PO; +POTA20TA10 PO
== END ==
LOC: LAB 13:43
PROVIDERS: ATTEND Nurse Practitioner Family
DX: R60.0 Localized edema (principal)
CPT/HCPCS: 36415; 82310; 82374; 82435; 82565; 82947; 84132; 84295; 84520

== ENCOUNTER → 2018-12-08 | Outpatient (CLI) | payer MEDICARE, OTHER ==
[2015-10-19 13:21] VITALS: BMI 33.5
== END ==
LOC: LAB 10:16
PROVIDERS: ATTEND Nurse Practitioner Family
DX: R60.9 Edema, unspecified (principal)
CPT/HCPCS: 36415; 82310; 82374; 82435; 82565; 82947; 84132; 84295; 84520

== ENCOUNTER 2018-12-09 16:18 | Outpatient (RCR) | payer MEDICARE, OTHER ==
[2015-10-19 13:21] VITALS: BMI 33.5
--- NOTE | 2018-10-27 14:19 | PT INITIAL EVALUATION ---
MEDICAL DIAGNOSIS: shoulder pain, leg pain TREATMENT DIAGNOSIS: same DATE OF ONSET: 04/28/18 SUBJECTIVE: Naomi Swain presents to physical therapy with complaints of muscle weakness in his B UE, core, and B LE's along with decreased L shoulder AROM and B knee AROM into flexion and extension. Other than that he reports that he is doing pretty good. He reports that he has a history of serious surgeries that include B knees replaced, removal of intestines, bone spurs removal in his B feet, and B shoulder repaired. He denies any current pain. He reports that he just started a walking program around his house and would like to improve his strength, endurance, balance, and motions so that he can continue to do what he likes to do in life. He states that he has neglected himself over the years and has declined and would like to get back to as normal as possible. . . Pain location is and described as . Pain scale is on a ten point pain scale. Pain is worse with and better with . REHAB PROBLEM LIST: Increased Pain Decreased ROM Decreased Strength Decreased Endurance Decreased Balance Decreased Function Decreased ADL's Decreased Mobility Decreased Gait PREVIOUS MEDICAL HISTORY: See EMR OCCUPATION: Retired OBJECTIVE: Posture: He demonstrates minimal to moderate forward head, rounded shoulders, increased thoracic kyphosis, and decreased lumbar lordosis. ROM: L shoulder flexion, abduction, ER: minimal restrictions. B knee extension and flexion (5-120 degrees). Other than that he is WFL's with the rest of his joint motions Strength: B hip flexion, abduction, extension, B knee flexion, B ankle PF and DF: 4-/5. B hip adduction, B knee extension: 4+/5. Palpation: He was not TTP Special Tests: 6 minute walk test: 684 feet Mobility: Independent Gait: He demonstrated the following gait mechanics without an AD: decreased B step length, decreased B step clearance, decreased velocity, increased lateral trunk movement, decreased pelvic rotation, increased path deviation from R to L, and no LOB Balance: He demonstrated less than 10 seconds when his vestibular system was isolated. He demonstrated 30 seconds when he was able to utilized his vision and vestibular system. He demonstrated 60 seconds when he was able to utilized all of his balance systems. Other Objective Findings: ASSESSMENT: Naomi will benefit from skilled physical therapy addressing the listed impairments to improve function and QOL. Short Term Goals 8 weeks: Pt will demonstrate significant improvements in all of his balance strategies from baseline to greater than 30 seconds with all conditions to improve function and QOL. 8 weeks: Pt will demonstrate significant improvements in his core and B UE and B LE to 4+/5 or greater to improve function and QOL. 8 weeks: Pt will demonstrate significant endurance from his baseline to 1300 feet or greater to improve function and QOL. Patient's Goals improve strength and endurance PLAN: Patient to be seen for Manual Therapy/STM/MET Ice/Heat Range of Motion Work Hardening/Cond Stretching Iontophoresis Neuromuscular Re-ed Closed Chain Program Electrical Stim Posture/Body mechanics Gait Trg/Balance Trg Home Exercise Program Therapeutic Activities 2x/Week for 2 Months If you have any questions, comments, or concerns about this report or plan, please contact me at . Thank you, Chandrakant Blum, PT, DPT [facility]
--- NOTE | 2018-11-24 11:27 | PT PLAN OF CARE ---
Physician: Viv Maza APRN, CHANNEL MANAGER-C Patient is being seen: 2-3x/week Therapist: Chandrakant Blum, PT, DPT Medical Diagnosis: shoulder pain, leg pain Treatment Diagnosis: same Date of Onset: 04/28/18 Date of Initial Evaluation: 10/27/18 Date patient was last seen: 11/23/18 Number of treatments: 10 Number of cancellations/No shows: 0 INTERVENTIONS: Manual Therapy/STM/MET Ice/Heat Range of Motion Work Hardening/Cond Stretching Iontophoresis Neuromuscular Re-ed Closed Chain Program Electrical Stim Posture/Body mechanics Gait Trg/Balance Trg Home Exercise Program Therapeutic Activities GOALS: 8 weeks: Pt will demonstrate significant improvements in all of his balance strategies from baseline to greater than 30 seconds with all conditions to improve function and QOL. 8 weeks: Pt will demonstrate significant improvements in his core and B UE and B LE to 4+/5 or greater to improve function and QOL. 8 weeks: Pt will demonstrate significant endurance from his baseline to 1300 feet or greater to improve function and QOL. PATIENT'S GOAL: improve strength and endurance Status of Patient's Goals: Progressing Patient Compliance: Good Prognosis: Good Reasons for continuing therapy: This is a progress note for Naomi Swain. He reports that he is doing well. He reports that he feels like his strength is getting a little better but has not felt a huge increase especially with his daily function but feels like with more time it will be a huge impact in his life. He demonstrates significant improvements with his B LE strength, improvements with his gait mechanics but continues to have decreased L step length and decreased stance time of his R LE. He also demonstrates improvements with his endurance as he can go longer with increased resistance as compared to before. His swelling continues to become less but needs to lose 3-5 more pounds to get back to his baseline. We will continue to improve strength, balance strategies, gait mechanics and assist him to return closer to prior level of function. Posture: He demonstrates minimal to moderate forward head, rounded shoulders, increased thoracic kyphosis, and decreased lumbar lordosis. ROM: L shoulder flexion, abduction, ER: minimal restrictions. B knee extension and flexion (5-120 degrees). Other than that he is WFL's with the rest of his joint motions Strength: B hip flexion, abduction, extension, B knee flexion, B ankle PF and DF: 4/5. B hip adduction, B knee extension: 4+/5. Special Tests: 6 minute walk test: 700 feet Mobility: Independent If you have any questions, please contact me at [phone]. Thank you, Chandrakant Blum, PT, DPT [facility]
--- NOTE | 2018-12-10 09:54 | PT PLAN OF CARE ---
Physician: Viv Maza APRN, SUMO WRESTLER-C Patient is being seen: [[email or web address]] Therapist: [[email or web address]] Medical Diagnosis: shoulder pain, leg pain Treatment Diagnosis: same Date of Onset: 04/28/18 Date of Initial Evaluation: 10/27/18 Date patient was last seen: 12/09/18 Number of treatments: 16 Number of cancellations/No shows: [*] INTERVENTIONS: Manual Therapy/STM/MET Ice/Heat Range of Motion Work Hardening/Cond Stretching Iontophoresis Neuromuscular Re-ed Closed Chain Program Electrical Stim Posture/Body mechanics Gait Trg/Balance Trg Home Exercise Program Therapeutic Activities GOALS: 8 weeks: Pt will demonstrate significant improvements in all of his balance strategies from baseline to greater than 30 seconds with all conditions to improve function and QOL. 8 weeks: Pt will demonstrate significant improvements in his core and B UE and B LE to 4+/5 or greater to improve function and QOL. 8 weeks: Pt will demonstrate significant endurance from his baseline to 1300 feet or greater to improve function and QOL. PATIENT'S GOAL: improve strength and endurance Status of Patient's Goals: Progressing Patient Compliance: Good Prognosis: Good Reasons for continuing therapy: This is a discharge note for Naomi Swain. He reports that he is doing well. He reports that he feels like his strength and endurance are getting a little better. He reports that his legs are continuing to feel weak and tired and would like to focus on his shoulders and let his legs rest a bit. He demonstrates significant improvements with his B LE strength, improvements with his gait mechanics but continues to have decreased L step length and decreased stance time of his R LE. He also demonstrates improvements with his endurance as he can go longer with increased resistance as compared to before. He continues to demonstrate increased endurance, increased B shoulder AAROM in all directions, and continues to be independent with his home exercise program. He will be going on vacation for the next two weeks. Therefore, we will discharge him and then if he wants to return, he will be re-examined into the new EMR system. Posture: He demonstrates minimal to moderate forward head, rounded shoulders, increased thoracic kyphosis, and decreased lumbar lordosis. ROM: L shoulder flexion, abduction, ER: minimal restrictions. B knee extension and flexion (5-120 degrees). Other than that he is WFL's with the rest of his joint motions Strength: B hip flexion, abduction, extension, B knee flexion, B ankle PF and DF: 4/5. B hip adduction, B knee extension: 4+/5. Special Tests: 6 minute walk test: 700 feet Mobility: Independent If you have any questions, please contact me at [phone]. Thank you, Chandrakant Blum, PT, DPT MTDD
== END 2018-12-09 18:00 | disposition home or self-care (01) ==
LOC: PT 16:18
PROVIDERS: ATTEND Nurse Practitioner Family
DX: M25.512 Pain in left shoulder (principal); M79.605 Pain in left leg; M79.604 Pain in right leg; M62.81 Muscle weakness (generalized)
CPT/HCPCS: 97162